=== PATIENT | female | born 1940 | race Caucasian/White ===

== ENCOUNTER 2022-02-18 17:23 | Inpatient (IN) | payer MEDICARE, BC ==
[~2022-02-18] VITALS: Ht 165.1 cm; Wt 72.6 kg
--- NOTE | 2022-02-18 17:30 | NUR ---
Recieved pt 81 yrs female by elina from home c/o syncopy and cold sweat pt awake and alert respiration spont and easy
[2022-02-18] MEDS ORDERED: LEVO112T2 PO (17:37)
[2022-02-18] MEDS ORDERED: ATOR20TA PO (17:37)
[2022-02-18] MEDS ORDERED: GABA600T12 PO (17:37)
[2022-02-18] MEDS ORDERED: SERT100T12 PO (17:37)
[2022-02-18] MEDS ORDERED: OMEP40CA21 PO (17:37)
[2022-02-18] MEDS ORDERED: NITR50CA PO (17:37)
--- NOTE | 2022-02-18 17:50 | NUR ---
ABENA MCNAMARA [phone] DAUGHTER STEWARD/STEWARDESS RAILROAD DINING CAR IS [employer]
[2022-02-18 18:18] LABS: BASOPHILS # (AUTO) 0.1 K/uL (0.0-0.2); LYMPHOCYTES # (AUTO) 4.2 K/uL (0.8-4.8)
--- NOTE | 2022-02-18 18:25 | NUR ---
URINE SAMPLE AND COVID SWAB SENT TO LAB
[2022-02-18 18:26] LABS: BASOPHILS % (AUTO) 0.6 % (0.0-2.0); EOSINOPHILS % (AUTO) 0.8 % (0.0-6.0); HEMATOCRIT 42 % (33-45); LYMPHOCYTES % (AUTO) 24.7 % (20.0-44.0); MEAN CORPUSCULAR HGB CONC 31 g/dl (31.0-36.0); MEAN CORPUSCULAR VOLUME 84 fL (82-100); MONOCYTES # (AUTO) 1.1 K/uL (0.1-1.30); MONOCYTES % (AUTO) 6.5 % (2.0-12.0); NEUTROPHILS # (AUTO) 11.5 K/uL (1.8-8.9); NEUTROPHILS % (AUTO) 67.4 % (43.0-81.0); PLATELET COUNT (AUTO) 318 K/uL (150-450); RED BLOOD CELL COUNT(AUTO) 4.96 MIL/uL (4.0-5.2); WHITE BLOOD COUNT (AUTO) 17.1 K/uL (4.3-11.0)
--- NOTE | 2022-02-18 18:28 | NUR ---
COVED SWAB DONE ANd sent to lab [facility] PT HAD SUPRAPUBIC CATHETER
--- NOTE | 2022-02-18 18:33 | NUR ---
urine clear yellow color
[2022-02-18 18:34] LABS: BILIRUBIN,URINE NEGATIVE (NEGATIVE); COLOR,URINE YELLOW (YELLOW); LEUKOCYTE ESTERASE ,URINE TRACE (NEGATIVE); NITRITE, URINE NEGATIVE (NEGATIVE); PROTEIN,URINE 100 mg/dl (NEGATIVE); UGLUCOSE NEGATIVE (NEGATIVE); UROBILINOGEN,URINE 0.2 EU/dL (0.2)
[2022-02-18 18:44] LABS: LIPASE 471 U/L (73-393)
[2022-02-18 18:44] LABS: BACTERIA,URINE 1+ /HPF (None Seen); RBC,URINE 51-80 /HPF (0-2); SQUAMOUS EPITHELIAL CELL,UR 0-2 /HPF (None Seen)
[2022-02-18 18:45] LABS: ALANINE AMINOTRANSFERASE 28 U/L (12-78); ALBUMIN 3.1 g/dL (3.4-5.0); ALKALINE PHOSPHATASE 126 U/L (46-116); ASPARTATE AMINOTRANSFERASE 33 U/L (15-37); BILIRUBIN,TOTAL 0.2 mg/dL (0.2-1.0); CALCIUM, SERUM 8.6 mg/dL (8.5-10.1); CARBON DIOXIDE 22 mmol/L (21-32); CHLORIDE 105 mmol/L (98-107); CREATININE 1.9 mg/dL (0.6-1.3); GLUCOSE 147 mg/dL (74-106); POTASSIUM 4.8 mmol/L (3.5-5.1); SODIUM SERUM 138 mmol/L (136-145); TOTAL PROTEIN, SERUM 6.7 g/dL (6.4-8.2); UREA NITROGEN, BLOOD 21 mg/dL (7-18)
[2022-02-18] MEDS ORDERED: IV NS 0.9% 250 ML IV ONE (19:12)
[2022-02-18] MEDS ORDERED: IOHEXOL-300 100 ML VIAL IV ONE (19:12)
[2022-02-18] MEDS ORDERED: PIPERACILLIN /TAZOBACTAM 3.375 G in IV D5W 50 ML IV ONE (19:30)
--- NOTE | 2022-02-18 19:36 | NUR ---
RECEIVED REPORT FROM [employer] FOR CASTILLO
--- NOTE | 2022-02-18 19:49 | NUR ---
HOMER COPE, UROLOGIST: [phone]
--- NOTE | 2022-02-18 19:53 | NUR ---
hand off to april rn
--- NOTE | 2022-02-18 20:01 | NUR ---
PT IS RESTING COMFORTABLY IN BED, PT VERBALIZES HAVING A HEADACHE 7/10 ON P/S. MD MADE AWARE. WILL CONTINUE TO MONITOR.
[2022-02-18 20:43] LABS: BAND % (MANUAL) 2 % (0.0-5.0); LYMPHOCYTES % (MANUAL) 30 % (16-48); MONOCYTES % (MANUAL) 4 % (0-11.0); NEUTROPHILS % (MANUAL) 64 (42-76)
[2022-02-18] MEDS ORDERED: ACETAMINOPHEN 325 MG TABLET PO ONE (21:30)
--- NOTE | 2022-02-18 21:34 | NUR ---
COVID SWAB DONE AND SENT TO LAB
[2022-02-18] MEDS ORDERED: MAGNESIUM HYDROXIDE 30 ML UDC PO PRN (22:00)
[2022-02-18] MEDS ORDERED: MAG HYDROX/AL HYDROX/SIMETH 30 ML UDC PO PRN (22:00)
[2022-02-18] MEDS ORDERED: Z GUARD REMEDY 4 OZ OINT TP PRN (22:00)
[2022-02-18] MEDS ORDERED: ALPRAZOLAM 0.5 MG TABLET PO PRN (22:00)
[2022-02-18] MEDS ORDERED: DEXTROSE 50%-WATER 50 ML DISP.SYRIN IV PRN (22:00)
--- NOTE | 2022-02-18 22:09 | NUR ---
PT HAD BOWEL MOVEMENT , DIARRHEA NOTED. PERINEAL CARE PROVIDED.
--- NOTE | 2022-02-18 22:34 | NUR ---
PT PROVIDED WITH FOOD AND WATER. WILL CONTINUE TO MONITOR.
--- NOTE | 2022-02-18 23:12 | NUR ---
ROOM CHANGED TO [facility]
--- NOTE | 2022-02-18 23:16 | NUR ---
CALLED 3W FOR REPORT, UNABLE TO SPEAK TO KAROL MARTINEZ. SHE WILL RETURN MY CALL.
--- NOTE | 2022-02-18 23:39 | NUR ---
REPORT GIVEN TO JUAN ROBERSON FOR CASTILLO
[2022-02-19] VITALS: BP_SYST 117; BP_SYST 118; BP_DIAS 74; BP_DIAS 82
--- NOTE | 2022-02-19 | NUR ---
TRANSFERRING PT TO 327 VIA ACLS.
[2022-02-19] MEDS: IV NS 0.9% 1,000 ML IV PRN ×2 (00:31→17:46)
[2022-02-19] MEDS: BLOOD SUGAR DIAGNOSTIC 1 EACH STRIP IN SCH ×5 (00:43→22:24)
--- NOTE | 2022-02-19 00:59 | NUR ---
MS/TELE/RN RECEIVED PATIENT FROM [facility] VIA [facility] AT ABOUT 00:05 ACCOMPANIED BY THE CAREGIVER. MADE PATIENT COMFORTABLE IN BED, APPLIED THE HEART MONITOR. PATIENT WAS AWAKE, ALERT AND ORIENTED X 4, COMFORTABLE, NO C/O PAIN, NO SIGNS OF DISTRESS NOTED, ADMISSION DONE PER POLICY, SKIN CHECK DONE, PLAN OF CARE DISCUSSED WITH THE PATIENT AND VERBALISED UNDERSTANDING AND AGREEMENT TO THE PLAN OF CARE, FALL PRECAUTIONS PER PROTOCOL IMPLEMENTED, TAUGHT THE USE OF CALL LIGHT AND VERBALISED UNDERSTANDING, PLACED CALL LIGHT AT BEDSIDE WITHIN REACH, MD ORDERS CARRIED OUT, WILL MONITOR.
--- NOTE | 2022-02-19 02:59 | NUR ---
MS/TELE/RN PATIENT WAS TRANSFERRED TO ROOM 323-1 PER PATIENT'S REQUEST.
[2022-02-19 04:00] VITALS: BP 110/64
[2022-02-19] MEDS ORDERED: PIPERACILLIN /TAZOBACTAM 2.25 G VIAL IV ONE (04:39)
[2022-02-19] MEDS ORDERED: PIPERACILLIN /TAZOBACTAM 2.25 G in IV D5W 50 ML IV SCH (05:00)
[2022-02-19] MEDS: LEVOTHYROXINE SODIUM 112 MCG TABLET PO SCH (06:32)
--- NOTE | 2022-02-19 06:37 | NUR ---
MS/TELE/RN PATIENT IS AWAKE, NO C/O PAIN, BREATHING EVEN AND UNLABORED, NO SIGNS OF DISTRESS NOTED, CALL LIGHT IN REACH, ALL NEEDS ATTENDED AT THIS TIME, WILL CONTINUE TO MONITOR.
[2022-02-19 07:21] LABS: CARBON DIOXIDE 24 mmol/L (21-32); CHLORIDE 104 mmol/L (98-107); CREATININE 1.8 mg/dL (0.6-1.3); GLUCOSE 150 mg/dL (74-106); LIPASE 139 U/L (73-393); SODIUM SERUM 138 mmol/L (136-145); UREA NITROGEN, BLOOD 25 mg/dL (7-18)
[2022-02-19 07:38] LABS: THYROID STIMULATING HORMONE 1.507 uIU/mL (0.358-3.74)
[2022-02-19 07:41] LABS: BASOPHILS % (AUTO) 0.1 % (0.0-2.0); EOSINOPHILS % (AUTO) 0.6 % (0.0-6.0); HEMATOCRIT 32 % (33-45); HEMOGLOBIN 10.4 g/dL (11.5-14.8); LYMPHOCYTES # (AUTO) 3.2 K/uL (0.8-4.8); MEAN CORPUSCULAR HGB CONC 32 g/dl (31.0-36.0); MEAN CORPUSCULAR VOLUME 83 fL (82-100); MONOCYTES # (AUTO) 1.2 K/uL (0.1-1.30); MONOCYTES % (AUTO) 6.2 % (2.0-12.0); NEUTROPHILS # (AUTO) 15.2 K/uL (1.8-8.9); NEUTROPHILS % (AUTO) 77.1 % (43.0-81.0); PLATELET COUNT (AUTO) 243 K/uL (150-450); RED BLOOD CELL COUNT(AUTO) 3.89 MIL/uL (4.0-5.2); WHITE BLOOD COUNT (AUTO) 19.7 K/uL (4.3-11.0)
[2022-02-19 07:43] LABS: MAGNESIUM 1.6 mg/dL (1.8-2.4); PHOSPHORUS 5.5 mg/dL (2.5-4.9)
[2022-02-19 07:49] LABS: CALCIUM, SERUM 7.8 mg/dL (8.5-10.1)
[2022-02-19 08:00] VITALS: BP 125/78
--- NOTE | 2022-02-19 08:08 | NUR ---
RN OPENING NOTE PATIENT RECEIVED IN BED, AO X 4, PRIVATE CAREGIVER AT BED SIDE. ABLE TO RESPONDS ALL STIMULI. IN NO ACUTE DISTRESS NOTED. RESPIRATORY EVEN AND UNLABORED ON RA. SKIN IS WARM TO TOUCH, KEEP CLEAN/DRY. KEPT ELEVATED HOB FOR ENSURE AIRWAY AND ASPIRATION PRECAUTION, ALSO LOWEST POSITION OF THE BED, S/R UP X 3, BED ALARM IS ON AT ALL THE TIMES. ALL SAFETY PRECAUTION APPLIED. CALL LIGHT WITHIN REACH, WILL CONTINUE TO MONITOR.
[2022-02-19] MEDS: SERTRALINE HCL 50 MG TABLET PO SCH ×2 (08:28→20:45)
[2022-02-19] MEDS: GABAPENTIN 300 MG CAPSULE PO SCH ×3 (08:29→17:16)
[2022-02-19] MEDS: PANTOPRAZOLE 40 MG VIAL IV SCH (08:29)
[2022-02-19] MEDS ORDERED: Magnesium 1GM/D5W 100ML PREMIX 100 ML IV SCH (09:30)
[2022-02-19] MEDS: PIPERACILLIN /TAZOBACTAM 2.25 G in IV D5W 50 ML IV SCH ×2 (12:08→17:16)
[2022-02-19] MEDS: VANCOMYCIN HCL 125 MG/2.5 ML ORAL.SUSP PO SCH ×2 (14:12→17:51)
[2022-02-19] MEDS: METRONIDAZOLE 500MG/ NS 100ML 500 MG in PREMIX 1 EA IV SCH ×2 (14:13→20:45)
[2022-02-19 16:00] VITALS: BP 134/86
[2022-02-19] MEDS: HYDROCODONE/APAP 5/325MG TABLET PO PRN (17:17)
--- NOTE | 2022-02-19 18:30 | NUR ---
RN CLOSE NOTE PATIENT IN BED, IN NO ACUTE DISTRESS OBSERVED. RESPIRATION EVEN AND UNLABORED ON RA. SKIN IS WARM TO TOUCH KEEP CLEAN//DRY, INTACT IV SITE. PATIENT HAS BEEN LBM BEFORE ADMITTED AND HAD LBM X 3 DURING THE SHIFT, MD AWARENESS AND COLLECTED SAMPLE TO LAB. KEPT ELEVATED HOB FOR ENSURE AIRWAY AND ASPIRATION PRECAUTION. ALSO LOWEST POSITION OF THE BED FOR SAFETY. CALL LIGHT WITHIN REACH, WILL ENDORSE TO SAMPLE TESTER.
--- NOTE | 2022-02-19 19:25 | NUR ---
PROP AND EFFECTS DESIGNER OPENING NOTES RECEIVED PATIENT IN BED; AWAKE, ALERT AND ORIENTED X4. BREATHING IS EVEN AND NONLABORED. NO SOB NOTED. IN NO ACUTE DISTRESS. ON ROOM AIR, TOLERATING WELL. WITH IV ACCESS ON LEFT FOREARM G#18 AND ON RIGHT FOREARM G#18 INFUSING WITH NS 1L REGULATED AT 75ML/HR; PATENT, INTACT AND FLUSHES WELL. ABLE TO MAKE NEEDS KNOWN. SAFETY MEASURES IMPLEMENTED: CALL BUTTON AND TABLE WITHIN EASY REACH, SIDE RAILS UP X2, BED IN LOWEST LOCKED POSITION. WILL CONTINUE PLAN OF CARE
[2022-02-19 20:15] VITALS: BP 140/88
[2022-02-19] MEDS: MORPHINE SULFATE INJ 2 MG/ML DISP.SYRIN IV PRN (20:40)
[2022-02-19] MEDS: ATORVASTATIN 10 MG TABLET PO SCH (22:14)
[2022-02-19] MEDS: INSULIN REGULAR, HUMAN 100 UNIT/ML 3 ML VIAL SQ PRN (23:10)
[2022-02-20] MEDS: PIPERACILLIN /TAZOBACTAM 2.25 G in IV D5W 50 ML IV SCH ×5 (00:23→23:08)
[2022-02-20] MEDS: VANCOMYCIN HCL 125 MG/2.5 ML ORAL.SUSP PO SCH ×5 (00:24→23:08)
[2022-02-20 04:21] VITALS: BP 178/83
[2022-02-20] MEDS: METRONIDAZOLE 500MG/ NS 100ML 500 MG in PREMIX 1 EA IV SCH ×3 (05:01→20:41)
[2022-02-20 06:17] LABS: BASOPHILS % (AUTO) 0.1 % (0.0-2.0); EOSINOPHILS % (AUTO) 1.3 % (0.0-6.0); HEMATOCRIT 31 % (33-45); HEMOGLOBIN 10.1 g/dL (11.5-14.8); LYMPHOCYTES # (AUTO) 2.4 K/uL (0.8-4.8); LYMPHOCYTES % (AUTO) 26.3 % (20.0-44.0); MEAN CORPUSCULAR HGB CONC 32 g/dl (31.0-36.0); MEAN CORPUSCULAR VOLUME 83 fL (82-100); MONOCYTES # (AUTO) 0.8 K/uL (0.1-1.30); MONOCYTES % (AUTO) 8.2 % (2.0-12.0); NEUTROPHILS # (AUTO) 5.9 K/uL (1.8-8.9); NEUTROPHILS % (AUTO) 64.1 % (43.0-81.0); PLATELET COUNT (AUTO) 224 K/uL (150-450); RED BLOOD CELL COUNT(AUTO) 3.78 MIL/uL (4.0-5.2); WHITE BLOOD COUNT (AUTO) 9.3 K/uL (4.3-11.0)
[2022-02-20 06:31] LABS: CALCIUM, SERUM 8.3 mg/dL (8.5-10.1); CREATININE 1.1 mg/dL (0.6-1.3); MAGNESIUM 1.6 mg/dL (1.8-2.4); PHOSPHORUS 4.1 mg/dL (2.5-4.9); POTASSIUM 4.1 mmol/L (3.5-5.1)
[2022-02-20 06:38] LABS: OCCULT BLOOD STOOL POSITIVE (NEGATIVE)
[2022-02-20] MEDS: IV NS 0.9% 1,000 ML IV PRN (06:46)
--- NOTE | 2022-02-20 07:25 | NUR ---
RAILROAD SIGNAL OPERATOR CLOSING NOTES PATIENT IN BED; AWAKE, ALERT AND ORIENTED X4. BREATHING IS EVEN AND NONLABORED. IN NO ACUTE DISTRESS. ON ROOM AIR, TOLERATING WELL. NEEDS ATTENDED. SAFETY MEASURES IN PLACE. ENDORSED TO MORNING SHIFT FOR CONTINUITY OF CARE.
--- NOTE | 2022-02-20 07:52 | NUR ---
RN OPENING NOTE PATIENT IN BED RESTING, SLEEPING, AWAKENS TO VERBAL STIMULI. A/O X 4. NO S/S OF PAIN NOTED AT THIS TIME. ON ROOM AIR, NO DISTRESS OR SHORTNESS OF BREATH NOTED. IV ACCESS RFA #18G INTACT, PATENT AND FLUSHING WELL. PATIENT HAVE A SUPRAPUBIC CATHETER, IN PLACE AND DRAINING WELL. FALL AND SAFETY MEASURES IN PLACE, BED ALARM ON, BED IN LOW AND LOCK POSITION, CALL LIGHT AND TABLE WITHIN EASY REACH, SIDE RAILS UP X2. WILL CONTINUE TO MONITOR.
[2022-02-20 08:00] VITALS: BP 175/87
[2022-02-20] MEDS: PANTOPRAZOLE 40 MG VIAL IV SCH (09:47)
[2022-02-20] MEDS: GABAPENTIN 300 MG CAPSULE PO SCH ×3 (09:47→16:37)
[2022-02-20] MEDS: LEVOTHYROXINE SODIUM 112 MCG TABLET PO SCH (09:47)
[2022-02-20] MEDS: SERTRALINE HCL 50 MG TABLET PO SCH (09:47)
[2022-02-20] MEDS: BLOOD SUGAR DIAGNOSTIC 1 EACH STRIP IN SCH ×4 (09:48→21:25)
[2022-02-20] MEDS ORDERED: MAGNESIUM OXIDE 400 MG TABLET PO ONE (10:30)
[2022-02-20] MEDS: ONDANSETRON HCL/PF 4 MG/2 ML VIAL IVP PRN (10:38)
[2022-02-20] MEDS: MORPHINE SULFATE INJ 2 MG/ML DISP.SYRIN IV PRN ×3 (10:39→20:14)
[2022-02-20] MEDS: GLUCERNA SHAKE 237 ML CAN PO SCH ×2 (13:55→17:11)
[2022-02-20] MEDS ORDERED: METOCLOPRAMIDE HCL 10 MG/2 ML VIAL IV PRN (15:00)
[2022-02-20 16:00] VITALS: BP 154/92
[2022-02-20] MEDS ORDERED: BUPR300T52 PO (16:10)
[2022-02-20] MEDS ORDERED: LISI10TA29 PO (16:11)
[2022-02-20] MEDS: LISINOPRIL (10MG) 10 MG TABLET PO SCH (16:38)
[2022-02-20] MEDS: INSULIN REGULAR, HUMAN 100 UNIT/ML 3 ML VIAL SQ PRN (17:20)
--- NOTE | 2022-02-20 18:35 | NUR ---
RN CLOSING NOTE PATIENT IN BED RESTING, SLEEPING, AWAKENS TO VERBAL STIMULI. A/O X 4. NO S/S OF PAIN NOTED AT THIS TIME. ON ROOM AIR, NO DISTRESS OR SHORTNESS OF BREATH NOTED. IV ACCESS RFA #18G INTACT, PATENT AND FLUSHING WELL. PATIENT HAVE A SUPRAPUBIC CATHETER, IN PLACE AND DRAINING WELL, OUTPUT 1650ML. ALL SCHEDULE MEDICATIONS ADMINISTERED. FALL AND SAFETY MEASURES IN PLACE, BED ALARM ON, BED IN LOW AND LOCK POSITION, CALL LIGHT AND TABLE WITHIN EASY REACH, SIDE RAILS UP X2. WILL ENDORSE TO BATCH TESTER.
--- NOTE | 2022-02-20 19:20 | NUR ---
RN NOTE PT AWAKE IN BED, A/OX3, ABLE TO MAKE NEEDS KNOWN. NO C/O PAIN AT THIS TIME. ON ROOM AIR AND MANOLO WELL. RESPIRATIONS EVEN/UNLABORED. IV SITES: R-FA #18 AND L-FA #18 BOTH INTACT/PATENT. RUNNING NS @75ML/HR ON R-FA. 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 PT WITH MARKET RESEARCHER AT BEDSIDE. PT IN NO ACUTE DISTRESS. SAFETY MEASURE IN PLACE, WILL CONT TO MONITOR.
[2022-02-20] MEDS: ATORVASTATIN 10 MG TABLET PO SCH (21:18)
[2022-02-20] MEDS ORDERED: ATORVASTATIN 10 MG TABLET PO SCH (22:00)
[2022-02-21] MEDS: IV NS 0.9% 1,000 ML IV PRN ×2 (03:15→23:47)
[2022-02-21] MEDS: METRONIDAZOLE 500MG/ NS 100ML 500 MG in PREMIX 1 EA IV SCH (04:17)
[2022-02-21] MEDS: PIPERACILLIN /TAZOBACTAM 2.25 G in IV D5W 50 ML IV SCH (05:14)
[2022-02-21] MEDS: VANCOMYCIN HCL 125 MG/2.5 ML ORAL.SUSP PO SCH ×4 (05:14→23:39)
[2022-02-21] MEDS: LEVOTHYROXINE SODIUM 112 MCG TABLET PO SCH (06:13)
[2022-02-21 06:16] LABS: BASOPHILS % (AUTO) 0.2 % (0.0-2.0); EOSINOPHILS % (AUTO) 1.1 % (0.0-6.0); HEMATOCRIT 31 % (33-45); HEMOGLOBIN 9.9 g/dL (11.5-14.8); LYMPHOCYTES # (AUTO) 2.2 K/uL (0.8-4.8); LYMPHOCYTES % (AUTO) 20.9 % (20.0-44.0); MEAN CORPUSCULAR HGB CONC 32 g/dl (31.0-36.0); MEAN CORPUSCULAR VOLUME 83 fL (82-100); MONOCYTES # (AUTO) 1.1 K/uL (0.1-1.30); MONOCYTES % (AUTO) 10.5 % (2.0-12.0); NEUTROPHILS # (AUTO) 7.1 K/uL (1.8-8.9); NEUTROPHILS % (AUTO) 67.3 % (43.0-81.0); PLATELET COUNT (AUTO) 212 K/uL (150-450); RED BLOOD CELL COUNT(AUTO) 3.69 MIL/uL (4.0-5.2); WHITE BLOOD COUNT (AUTO) 10.6 K/uL (4.3-11.0)
[2022-02-21] MEDS: BLOOD SUGAR DIAGNOSTIC 1 EACH STRIP IN SCH ×4 (06:19→21:10)
[2022-02-21 06:48] LABS: CALCIUM, SERUM 8.5 mg/dL (8.5-10.1); MAGNESIUM 1.5 mg/dL (1.8-2.4); PHOSPHORUS 3.9 mg/dL (2.5-4.9); POTASSIUM 3.8 mmol/L (3.5-5.1)
[2022-02-21] MEDS: PANTOPRAZOLE 40 MG TABLET.DR PO SCH (07:02)
--- NOTE | 2022-02-21 07:17 | NUR ---
RN NOTE PT ASLEEP. EASILY AROUSABLE TO STIMULI, GOES RIGHT BACK TO SLEEP. PER CAREGIVER PT EATS LATE IN AM. RESPIRATIONS EVEN/UNLABORED. IV SITES: R-FA #18 AND L-FA #18 BOTH INTACT/PATENT. RUNNING NS @75ML/HR ON R-FA. ON TELE MONITOR, READING SR WITH BORDERLINE 1ST DEGREE AV BLOCK. PT WITH GROUP SUPERVISOR YARD AT BEDSIDE. NO ACUTE DISTRESS DURING THE SHIFT. SAFETY MEASURE MAINTAINED. ENDORSED TO NEXT SHIFT NURSE.
--- NOTE | 2022-02-21 07:49 | NUR ---
RN OPENING NOTE PATIENT IN BED RESTING, SLEEPING, AWAKENS TO VERBAL STIMULI. A/O X 4. NO S/S OF PAIN NOTED AT THIS TIME. ON ROOM AIR, NO DISTRESS OR SHORTNESS OF BREATH NOTED. IV ACCESS RFA #18G, LFA #18G INTACT, PATENT AND FLUSHING WELL. PATIENT HAVE A SUPRAPUBIC CATHETER, IN PLACE AND DRAINING WELL. PATIENT ON EXTERNAL SPOT FACER WITH CURRENT READING OF SR AND HR OF 76, NO CARDIAC DISTRESS NOTED. FALL AND SAFETY MEASURES IN PLACE, BED ALARM ON, BED IN LOW AND LOCK POSITION, CALL LIGHT AND TABLE WITHIN EASY REACH, SIDE RAILS UP X2. WILL CONTINUE TO MONITOR.
[2022-02-21] MEDS: GABAPENTIN 300 MG CAPSULE PO SCH ×3 (08:41→17:12)
[2022-02-21] MEDS: LISINOPRIL (10MG) 10 MG TABLET PO SCH (08:42)
[2022-02-21] MEDS: GLUCERNA SHAKE 237 ML CAN PO SCH ×3 (08:49→17:13)
[2022-02-21] MEDS: SERTRALINE HCL 50 MG TABLET PO SCH (09:00)
[2022-02-21] MEDS: BUPROPION XL 150 MG TAB.ER.24 PO SCH (09:00)
[2022-02-21] MEDS ORDERED: buPROPion 100 MG TABLET PO SCH (09:00)
[2022-02-21] MEDS: ONDANSETRON HCL/PF 4 MG/2 ML VIAL IVP PRN (09:05)
[2022-02-21] MEDS: Magnesium 1GM/D5W 100ML PREMIX 100 ML IV SCH ×2 (09:56→11:08)
[2022-02-21] MEDS: METRONIDAZOLE 500 MG TABLET PO SCH ×2 (12:24→20:12)
[2022-02-21] MEDS: HYDROCODONE/APAP 5/325MG TABLET PO PRN ×2 (14:37→20:13)
[2022-02-21] MEDS: INSULIN REGULAR, HUMAN 100 UNIT/ML 3 ML VIAL SQ PRN (17:12)
--- NOTE | 2022-02-21 19:29 | NUR ---
RN CLOSING NOTE PATIENT IN BED RESTING, SLEEPING, AWAKENS TO VERBAL STIMULI. A/O X 4. NO S/S OF PAIN NOTED AT THIS TIME. ON ROOM AIR, NO DISTRESS OR SHORTNESS OF BREATH NOTED. IV ACCESS RFA #18G INTACT, PATENT AND FLUSHING WELL. PATIENT HAVE A SUPRAPUBIC CATHETER, IN PLACE AND DRAINING WELL, OUTPUT 2100ML. ALL SCHEDULE MEDICATIONS ADMINISTERED. PATIENT ON EXTERNAL WARD ATTENDANT WITH CURRENT READING OF RS AND HR OF 78, NO CARDIAC DISTRESS NOTED. FALL AND SAFETY MEASURES IN PLACE, BED ALARM ON, BED IN LOW AND LOCK POSITION, CALL LIGHT AND TABLE WITHIN EASY REACH, SIDE RAILS UP X2. WILL ENDORSE TO FURNITURE UPHOLSTERER APPRENTICE.
--- NOTE | 2022-02-21 19:30 | NUR ---
RN NOTE PT AWAKE IN BED, A/OX3, ABLE TO MAKE NEEDS KNOWN. NO C/O PAIN AT THIS TIME. RESPIRATIONS EVEN/UNLABORED. IV SITES: R-FA #18 AND L-FA #18 BOTH INTACT/PATENT. RUNNING NS @75ML/HR ON R-FA. ON TELE MONITOR, READING SR, HR 68, with BBB. PT WITH ARMHOLE RAISER LOCKSTITCH AT BEDSIDE. PT IN NO ACUTE DISTRESS. SAFETY MEASURE IN PLACE, WILL CONT TO MONITOR.
[2022-02-21] MEDS: ATORVASTATIN 10 MG TABLET PO SCH (21:10)
--- NOTE | 2022-02-21 23:00 | NUR ---
RN NOTE SEEN BY AND NOTED ELIZABETH ORDER
[2022-02-21] MEDS ORDERED: CEFTRIAXONE 1 G VIAL ONE (23:31)
[2022-02-21] MEDS: CEFTRIAXONE 1 G in IV D5W 50 ML IV SCH (23:32)
[2022-02-22 00:55] VITALS: BP 135/72
[2022-02-22 04:39] VITALS: BP 121/76
[2022-02-22] MEDS: METRONIDAZOLE 500 MG TABLET PO SCH ×3 (05:44→21:23)
[2022-02-22] MEDS: VANCOMYCIN HCL 125 MG/2.5 ML ORAL.SUSP PO SCH ×3 (05:51→18:07)
[2022-02-22] MEDS: LEVOTHYROXINE SODIUM 112 MCG TABLET PO SCH (05:53)
[2022-02-22] MEDS: BLOOD SUGAR DIAGNOSTIC 1 EACH STRIP IN SCH ×4 (06:04→21:25)
[2022-02-22] MEDS: INSULIN REGULAR, HUMAN 100 UNIT/ML 3 ML VIAL SQ PRN (06:07)
[2022-02-22 06:28] LABS: BASOPHILS % (AUTO) 0.3 % (0.0-2.0); EOSINOPHILS % (AUTO) 1.8 % (0.0-6.0); HEMATOCRIT 33 % (33-45); HEMOGLOBIN 10.8 g/dL (11.5-14.8); LYMPHOCYTES % (AUTO) 22.3 % (20.0-44.0); MEAN CORPUSCULAR HGB CONC 32 g/dl (31.0-36.0); MEAN CORPUSCULAR VOLUME 83 fL (82-100); MONOCYTES # (AUTO) 0.9 K/uL (0.1-1.30); MONOCYTES % (AUTO) 10.7 % (2.0-12.0); NEUTROPHILS # (AUTO) 5.7 K/uL (1.8-8.9); NEUTROPHILS % (AUTO) 64.9 % (43.0-81.0); PLATELET COUNT (AUTO) 211 K/uL (150-450); RED BLOOD CELL COUNT(AUTO) 4.01 MIL/uL (4.0-5.2); WHITE BLOOD COUNT (AUTO) 8.8 K/uL (4.3-11.0)
[2022-02-22 06:53] LABS: CREATININE 0.9 mg/dL (0.6-1.3); MAGNESIUM 1.5 mg/dL (1.8-2.4); PHOSPHORUS 4.1 mg/dL (2.5-4.9); POTASSIUM 3.8 mmol/L (3.5-5.1)
--- NOTE | 2022-02-22 07:28 | NUR ---
ORACLE HRMS DEVELOPER OPENING NOTES RECEIVED PATIENT AWAKE IN BED;PATIENT IS ALERT AND ORIENTED X4. BREATHING IS EVEN AND NONLABORED. NO SOB NOTED. NO ACUTE DISTRESS NOTED. ON ROOM AIR, TOLERATING WELL. ON TELE MONITOR . IV ACCESS ON LEFT FOREARM G#18 AND ON RIGHT FOREARM G#18 INTACT.ON IV HYDRATION OF NS AT 75ML/HR ON THE RIGHT FOREARM. ABLE TO MAKE NEEDS KNOWN. SAFETY MEASURES IN PLACE. CALL LIGHT AND TABLE WITHIN EASY REACH, SIDE RAILS UP X2, BED IN LOWEST LOCKED POSITION. WILL CONTINUE TO MONITOR.
[2022-02-22] MEDS: PANTOPRAZOLE 40 MG TABLET.DR PO SCH (07:46)
[2022-02-22 08:00] VITALS: BP 160/92
[2022-02-22] MEDS: GLUCERNA SHAKE 237 ML CAN PO SCH ×3 (08:02→17:24)
[2022-02-22] MEDS: BUPROPION XL 150 MG TAB.ER.24 PO SCH (08:41)
[2022-02-22] MEDS: GABAPENTIN 300 MG CAPSULE PO SCH ×3 (08:41→16:20)
[2022-02-22] MEDS: SERTRALINE HCL 50 MG TABLET PO SCH (08:44)
[2022-02-22] MEDS: LISINOPRIL (10MG) 10 MG TABLET PO SCH (08:45)
[2022-02-22] MEDS: HYDROCODONE/APAP 5/325MG TABLET PO PRN ×2 (08:45→21:23)
[2022-02-22] MEDS: ONDANSETRON HCL/PF 4 MG/2 ML VIAL IVP PRN (08:49)
[2022-02-22] MEDS ORDERED: MAGNESIUM OXIDE 400 MG TABLET PO ONE (09:30)
[2022-02-22] MEDS ORDERED: BACITRACIN ZINC OINT PACKET 1 EA PACKET TP SCH (11:00)
[2022-02-22 12:00] VITALS: BP 141/79
[2022-02-22] MEDS: ACETAMINOPHEN 325 MG TABLET PO PRN (14:50)
[2022-02-22 16:00] VITALS: BP 140/78
[2022-02-22] MEDS: BACITRACIN ZINC OINT (15 GM) 15 GM TUBE TP SCH (16:21)
--- NOTE | 2022-02-22 19:30 | NUR ---
CAREER CENTER ADVISOR CLOSING NOTES PATIENT AWAKE IN BED;PATIENT IS ALERT AND ORIENTED X4. BREATHING IS EVEN AND NONLABORED. NO SOB NOTED. NO ACUTE DISTRESS NOTED. ON ROOM AIR, TOLERATING WELL. ON TELE MONITOR . IV ACCESS ON LEFT FOREARM G#18 AND ON RIGHT FOREARM G#18 INTACT.ON IV HYDRATION OF NS AT 75ML/HR ON THE RIGHT FOREARM. ABLE TO MAKE NEEDS KNOWN. ALL DUE MEDS GIVEN ORDERED. SAFETY MEASURES IN PLACE. CALL LIGHT AND TABLE WITHIN EASY REACH, SIDE RAILS UP X2, BED IN LOWEST LOCKED POSITION. WILL ENDORSE FOR CASTILLO..
--- NOTE | 2022-02-22 19:40 | NUR ---
TELERN FULLY AWAKE, UPSET STATED HAS PAIN AROUND SP CATH SITE, SITE MILD INFLAMATION AND REDNESS AROUND AREA. NO DRAINAGE SEEN. PATIENT ON ANTIBIOTICS. PRESENT IVF INFUSING WELL VIA LEFT ARM PLAN OF CARE AND MEDICATION REGIMEN DISCUSSED WITH PATIENT NEEDED FURTHER DISCUSSION. FORGETFUL.HAS OWN CAREGIVER TAKING CARE OF HER BASIC NEEDS. WILL NEED TO CALL MD REGARDING PATENTS COMPLAINTS. SR OF THE MONITOR, CONTINUED MONITORING.
[2022-02-22 20:00] VITALS: BP 133/86
[2022-02-22] MEDS: GUAIFENESIN/CODEINE 10 ML UDC PO PRN (20:01)
[2022-02-22] MEDS: ATORVASTATIN 10 MG TABLET PO SCH (21:23)
--- NOTE | 2022-02-22 21:25 | NUR ---
TELERN ORDERS RECEIVED FROM . NOVA 1 TAB PO ADMINISTERED, REPOSITIONED FOR COMFORT. CONTINUED MONITORING.
[2022-02-23] MEDS: CEFTRIAXONE 1 G in IV D5W 50 ML IV SCH (00:20)
[2022-02-23] MEDS: VANCOMYCIN HCL 125 MG/2.5 ML ORAL.SUSP PO SCH ×4 (00:21→18:14)
[2022-02-23 01:24] VITALS: BP 184/92
[2022-02-23] MEDS: HYDROCODONE/APAP 5/325MG TABLET PO PRN ×2 (01:42→13:09)
[2022-02-23 06:00] VITALS: BP 156/83
[2022-02-23] MEDS: METRONIDAZOLE 500 MG TABLET PO SCH ×3 (06:06→21:01)
[2022-02-23 06:26] LABS: BASOPHILS % (AUTO) 0.4 % (0.0-2.0); EOSINOPHILS % (AUTO) 2.2 % (0.0-6.0); HEMATOCRIT 33 % (33-45); HEMOGLOBIN 10.6 g/dL (11.5-14.8); LYMPHOCYTES # (AUTO) 2.2 K/uL (0.8-4.8); LYMPHOCYTES % (AUTO) 28.5 % (20.0-44.0); MEAN CORPUSCULAR HGB CONC 32 g/dl (31.0-36.0); MEAN CORPUSCULAR VOLUME 83 fL (82-100); MONOCYTES # (AUTO) 0.8 K/uL (0.1-1.30); MONOCYTES % (AUTO) 10.3 % (2.0-12.0); NEUTROPHILS # (AUTO) 4.6 K/uL (1.8-8.9); NEUTROPHILS % (AUTO) 58.6 % (43.0-81.0); PLATELET COUNT (AUTO) 199 K/uL (150-450); RED BLOOD CELL COUNT(AUTO) 3.96 MIL/uL (4.0-5.2); WHITE BLOOD COUNT (AUTO) 7.8 K/uL (4.3-11.0)
--- NOTE | 2022-02-23 06:45 | NUR ---
TELERN SLEPT LATE LIFESTYLE CONSULTANT. DUE MEDS GIVEN, BS 127. ALL NEEDS MADE, WENT BACK TO SLEEP.
[2022-02-23 06:47] LABS: CALCIUM, SERUM 8.5 mg/dL (8.5-10.1); CARBON DIOXIDE 29 mmol/L (21-32); CHLORIDE 106 mmol/L (98-107); CREATININE 0.8 mg/dL (0.6-1.3); GLUCOSE 129 mg/dL (74-106); MAGNESIUM 1.5 mg/dL (1.8-2.4); PHOSPHORUS 4.3 mg/dL (2.5-4.9); POTASSIUM 3.9 mmol/L (3.5-5.1); SODIUM SERUM 142 mmol/L (136-145); UREA NITROGEN, BLOOD 12 mg/dL (7-18)
--- NOTE | 2022-02-23 07:23 | NUR ---
COLOR PASTE MIXING SUPERVISOR OPENING NOTE RECEIVED PATIENT ASLEEP IN BED, EASILY AROUSE WITH CAREGIVER AT BEDSIDE. PATIENT IS ALERT AND ORIENTED X4. ABLE TO MAKE NEEDS KNOWN. ON ROOM AIR, TOLERATING WELL. BREATHING IS EVEN AND NONLABORED. NOT IN ANY SIGN OF RESPIRATORY DISTRESS. ON TELE MONITOR WITH CURRENT READING OF NORMAL SR, HR 66. IV ACCESS ON LEFT FOREARM G#18 AND ON RIGHT FOREARM G#18 INTACT. ON IV HYDRATION OF NS AT 75ML/HR ON THE RIGHT FOREARM. SAFETY MEASURES IN PLACE: CALL LIGHT AND TABLE WITHIN EASY REACH, SIDE RAILS UP X2, BED IN LOWEST LOCKED POSITION. WILL CONTINUE TO MONITOR PT AND WITH PLAN OF CARE.
[2022-02-23] MEDS: LEVOTHYROXINE SODIUM 112 MCG TABLET PO SCH (07:59)
[2022-02-23] MEDS: GLUCERNA SHAKE 237 ML CAN PO SCH ×3 (08:00→17:21)
[2022-02-23] MEDS: BLOOD SUGAR DIAGNOSTIC 1 EACH STRIP IN SCH ×4 (08:00→21:17)
[2022-02-23] MEDS: PANTOPRAZOLE 40 MG TABLET.DR PO SCH (08:00)
[2022-02-23 08:30] VITALS: BP 169/84
[2022-02-23] MEDS ORDERED: VANC125C11 PO (09:16)
[2022-02-23] MEDS: BACITRACIN ZINC OINT (15 GM) 15 GM TUBE TP SCH ×2 (09:42→17:21)
[2022-02-23] MEDS: BUPROPION XL 150 MG TAB.ER.24 PO SCH (09:42)
[2022-02-23] MEDS: SERTRALINE HCL 50 MG TABLET PO SCH (09:42)
[2022-02-23] MEDS: GABAPENTIN 300 MG CAPSULE PO SCH ×3 (09:42→17:21)
[2022-02-23] MEDS: LISINOPRIL (10MG) 10 MG TABLET PO SCH (09:43)
[2022-02-23] MEDS: Magnesium 1GM/D5W 100ML PREMIX 100 ML IV SCH ×2 (10:13→11:23)
[2022-02-23] MEDS: ONDANSETRON HCL/PF 4 MG/2 ML VIAL IVP PRN (11:02)
[2022-02-23] MEDS: ACETAMINOPHEN 325 MG TABLET PO PRN (11:02)
[2022-02-23 12:00] VITALS: BP 146/82
[2022-02-23] MEDS: INSULIN REGULAR, HUMAN 100 UNIT/ML 3 ML VIAL SQ PRN ×2 (12:34→17:22)
[2022-02-23 16:00] VITALS: BP 133/73
[2022-02-23] MEDS: GUAIFENESIN/CODEINE 10 ML UDC PO PRN (17:26)
--- NOTE | 2022-02-23 17:30 | NUR ---
RN NOTES ERROR WITH SCANNING MEDICATION. MANUALLY ENTERED, ADMINISTERED ROBITUSSIN WITH CODEINE AT 1726.
--- NOTE | 2022-02-23 18:35 | NUR ---
RN NOTES MADE DR. HAY AWARE OF PT'S VTE SCORE OF 3 WHICH PT'S IS AT RISK WITH ORDERS TO START PT ON LOVENOX 40MG SQ DAILY START AT 2100.
--- NOTE | 2022-02-23 19:30 | NUR ---
TIE INSPECTOR CLOSING NOTE PATIENT ASLEEP IN BED, EASILY AROUSE WITH CAREGIVER AT BEDSIDE. PATIENT IS ALERT AND ORIENTED X4. ABLE TO MAKE NEEDS KNOWN. ON ROOM AIR, TOLERATING WELL. BREATHING IS EVEN AND NONLABORED. NOT IN ANY SIGN OF RESPIRATORY DISTRESS. ON TELE MONITOR WITH CURRENT READING OF NORMAL SR, HR 70. IV ACCESS ON LEFT FOREARM G#18 AND ON RIGHT FOREARM G#18 INTACT. ON IV HYDRATION OF NS AT 75ML/HR ON THE RIGHT FOREARM. TURNED AND REPOSITIONED Q2HRS AND NEEDED. ALL NEEDS ATTENDED. SAFETY MEASURES IN PLACE: CALL LIGHT AND TABLE WITHIN EASY REACH, SIDE RAILS UP X2, BED IN LOWEST LOCKED POSITION. ENDORSED TO BURLAP ROLL COVERER NURSE.
--- NOTE | 2022-02-23 19:57 | NUR ---
MORTAR MAKER OPENING NOTE RECEIVED PATIENT ASLEEP IN BED, EASILY AROUSE WITH CAREGIVER AT BEDSIDE. PATIENT IS ALERT AND ORIENTED X4. ABLE TO MAKE NEEDS KNOWN. ON ROOM AIR, TOLERATING WELL. BREATHING IS EVEN AND NONLABORED. NOT IN ANY SIGN OF RESPIRATORY DISTRESS. ON TELE MONITOR WITH CURRENT READING OF NORMAL SR, HR 66. IV ACCESS ON LEFT FOREARM G#18 AND ON RIGHT FOREARM G#18 INTACT. ON IV HYDRATION OF NS AT 75ML/HR ON THE RIGHT FOREARM. SAFETY MEASURES IN PLACE: CALL LIGHT AND TABLE WITHIN EASY REACH, SIDE RAILS UP X2, BED IN LOWEST LOCKED POSITION. WILL CONTINUE TO MONITOR PT AND WITH PLAN OF CARE. Addendum: 02/23/22 at 7 by REJI MURILLO RN DELETE ENTRY WRONG ENTRY
[2022-02-23 20:00] VITALS: BP 113/76
--- NOTE | 2022-02-23 20:43 | NUR ---
RN NOTE PT C/O COUGHING AND ASKING FOR COUGH MED, EXPLAINED MED WAS GIVEN @1726 AND NOT YET DUE. PT ADAMANT TO REQUEST TO MD FOR ANOTHER COUGH MED. REPORTED TO ELZA KOCH NP WITH ORDER FOR ROBITUSSIN DM 5ML Q4HR PRN AND TO JOEY PREVIOUS ORDER
[2022-02-23] MEDS ORDERED: GUAIFENESIN/D-METHORPHAN HB 5 ML UDC PO PRN (21:00)
[2022-02-23] MEDS: ATORVASTATIN 10 MG TABLET PO SCH (21:01)
[2022-02-23] MEDS: ENOXAPARIN SODIUM 40 MG/0.4 ML DISP.SYRIN SQ SCH (21:02)
[2022-02-24] VITALS: BP 134/78
[2022-02-24] MEDS: CEFTRIAXONE 1 G in IV D5W 50 ML IV SCH (00:22)
[2022-02-24] MEDS: VANCOMYCIN HCL 125 MG/2.5 ML ORAL.SUSP PO SCH ×3 (00:22→12:04)
[2022-02-24 04:00] VITALS: BP 132/77
[2022-02-24] MEDS: METRONIDAZOLE 500 MG TABLET PO SCH ×2 (05:23→13:09)
[2022-02-24] MEDS: LEVOTHYROXINE SODIUM 112 MCG TABLET PO SCH (06:24)
[2022-02-24 06:32] LABS: BASOPHILS % (AUTO) 0.3 % (0.0-2.0); EOSINOPHILS % (AUTO) 1.3 % (0.0-6.0); HEMATOCRIT 32 % (33-45); HEMOGLOBIN 10.3 g/dL (11.5-14.8); LYMPHOCYTES # (AUTO) 2.2 K/uL (0.8-4.8); MEAN CORPUSCULAR HGB CONC 32 g/dl (31.0-36.0); MEAN CORPUSCULAR VOLUME 83 fL (82-100); MONOCYTES # (AUTO) 1.2 K/uL (0.1-1.30); MONOCYTES % (AUTO) 9.5 % (2.0-12.0); NEUTROPHILS # (AUTO) 8.6 K/uL (1.8-8.9); NEUTROPHILS % (AUTO) 70.9 % (43.0-81.0); PLATELET COUNT (AUTO) 208 K/uL (150-450); RED BLOOD CELL COUNT(AUTO) 3.89 MIL/uL (4.0-5.2); WHITE BLOOD COUNT (AUTO) 12.1 K/uL (4.3-11.0)
[2022-02-24] MEDS: BLOOD SUGAR DIAGNOSTIC 1 EACH STRIP IN SCH ×2 (06:33→12:04)
[2022-02-24] MEDS: INSULIN REGULAR, HUMAN 100 UNIT/ML 3 ML VIAL SQ PRN ×2 (06:35→12:07)
[2022-02-24 07:02] LABS: CALCIUM, SERUM 8.5 mg/dL (8.5-10.1); CARBON DIOXIDE 29 mmol/L (21-32); CHLORIDE 106 mmol/L (98-107); CREATININE 1.1 mg/dL (0.6-1.3); GLUCOSE 150 mg/dL (74-106); MAGNESIUM 1.7 mg/dL (1.8-2.4); POTASSIUM 4.2 mmol/L (3.5-5.1); SODIUM SERUM 142 mmol/L (136-145); UREA NITROGEN, BLOOD 15 mg/dL (7-18)
--- NOTE | 2022-02-24 08:02 | NUR ---
RN OPENING NOTE PATIENT RECEIVED IN BED, AO X 3-4, PRIVATE CAREGIVER AT BED SIDE. ABLE TO RESPONDS ALL STIMULI. IN NO ACUTE DISTRESS NOTED. RESPIRATORY EVEN AND UNLABORED ON RA. SKIN IS WARM TO TOUCH, KEEP CLEAN/DRY. KEPT ELEVATED HOB FOR ENSURE AIRWAY AND ASPIRATION PRECAUTION, ALSO LOWEST POSITION OF THE BED, S/R UP X 3, BED ALARM IS ON AT ALL THE TIMES. ALL SAFETY PRECAUTION APPLIED. CALL LIGHT WITHIN REACH, WILL CONTINUE TO MONITOR.
--- NOTE | 2022-02-24 09:26 | NUR ---
WOUND CARE CONSULT: RECEIVED CONSULT FOR REDNESS AROUND SUPRAPUBIC CATH SITE. SUPRAPUBIC SITE IS CLEAR WITH PINK AREA PROXIMALLY, NO DRAINAGE OR TENDERNESS NOTED. PT CAREGIVER AT BEDSIDE. DEFER TO PMD. WILL SEE PRN.
[2022-02-24] MEDS: GABAPENTIN 300 MG CAPSULE PO SCH ×2 (09:41→13:09)
[2022-02-24] MEDS: SERTRALINE HCL 50 MG TABLET PO SCH (09:42)
[2022-02-24] MEDS: BUPROPION XL 150 MG TAB.ER.24 PO SCH (09:42)
[2022-02-24 09:45] VITALS: BP 140/80
[2022-02-24] MEDS: ENOXAPARIN SODIUM 40 MG/0.4 ML DISP.SYRIN SQ SCH (09:45)
[2022-02-24] MEDS: LISINOPRIL (10MG) 10 MG TABLET PO SCH (09:45)
[2022-02-24] MEDS: BACITRACIN ZINC OINT (15 GM) 15 GM TUBE TP SCH (09:47)
[2022-02-24] MEDS: PANTOPRAZOLE 40 MG TABLET.DR PO SCH (09:49)
[2022-02-24] MEDS ORDERED: MAGNESIUM OXIDE 400 MG TABLET PO ONE (10:00)
[2022-02-24] MEDS: ACETAMINOPHEN 325 MG TABLET PO PRN (10:05)
[2022-02-24] MEDS: GLUCERNA SHAKE 237 ML CAN PO SCH ×2 (10:11→12:04)
--- NOTE | 2022-02-24 10:12 | NUR ---
GIVEN TYLENOL FOR GENERALIZED PAIN, PAIN SCALE 4 OUT 10.
--- NOTE | 2022-02-24 10:50 | NUR ---
RECHECKED MURDOCK SCALE IS 2/10.
[2022-02-24] MEDS ORDERED: CEFD300C3 PO (11:12)
[2022-02-24] MEDS ORDERED: METR500T PO (11:12)
--- NOTE | 2022-02-24 15:56 | NUR ---
PATIENT D/C TO HOME, GIVEN DISCHARGE INSTRUCTION INCLUDE NEW MEDICATIONS, ALSO CALLED [facility] FOR DELIVERY NEW MEDS TO PATIENT. Addendum: 02/24/22 at 1559 by ISHMAEL LUGO RN ERROR
--- NOTE | 2022-02-24 15:59 | NUR ---
PATIENT D/C TO HOME, GIVEN DISCHARGE INSTRUCTION INCLUDE NEW MEDICATIONS, ALSO CALLED [facility] FOR DELIVERY NEW MEDS TO PATIENT. PATIENT IN STABLE CONDITION, ALL VITAL SIGNS ARE STABLE.
--- NOTE | 2022-02-24 16:10 | NUR ---
PATIENT LEFT FACILITY ACCOMPANIED BY STAFF WITH WHEEL CHAIR TO THE PRIVATE CAR, IN STABLE CONDITION.
== END 2022-02-24 16:15 | disposition home health service (06) | DRG 314 ==
LOC: ER 17:25 → TELE 23:31
PROVIDERS: ADMIT Nurse Practitioner Acute Care; ATTEND Internal Medicine
DX: I95.9 Hypotension, unspecified (principal); N17.0 Acute kidney failure with tubular necrosis; K85.90 Acute pancreatitis without necrosis or infection, unspecified; N39.0 Urinary tract infection, site not specified; E46 Unspecified protein-calorie malnutrition; E87.2 Acidosis; L03.90 Cellulitis, unspecified; E86.0 Dehydration; E11.22 Type 2 diabetes mellitus with diabetic chronic kidney disease; K52.9 Noninfective gastroenteritis and colitis, unspecified; E78.5 Hyperlipidemia, unspecified; I12.9 Hypertensive chronic kidney disease with stage 1 through stage 4 chronic kidney disease, or unspecified chronic kidney disease; N18.9 Chronic kidney disease, unspecified; I25.10 Atherosclerotic heart disease of native coronary artery without angina pectoris; Z87.440 Personal history of urinary (tract) infections; Z87.891 Personal history of nicotine dependence; Z90.49 Acquired absence of other specified parts of digestive tract; Z90.710 Acquired absence of both cervix and uterus; E03.9 Hypothyroidism, unspecified; F32.9 Major depressive disorder, single episode, unspecified; M43.16 Spondylolisthesis, lumbar region; M48.061 Spinal stenosis, lumbar region without neurogenic claudication; N28.1 Cyst of kidney, acquired; Z96.641 Presence of right artificial hip joint; Z79.899 Other long term (current) drug therapy; B96.89 Other specified bacterial agents as the cause of diseases classified elsewhere; Z20.822 Contact with and (suspected) exposure to COVID-19; E86.1 Hypovolemia; F41.9 Anxiety disorder, unspecified; Z93.59 Other cystostomy status; E88.09 Other disorders of plasma-protein metabolism, not elsewhere classified
CPT/HCPCS: 36415; 70450-TC; 71045-TC; 76770-TC; 76856-TC; 80048-TC; 80076-TC; 81001; 82272-TC; 82962-TC; 83605-TC; 83690-TC; 83735-TC; 83880; 84100-TC; 84443-TC; 84484-TC; 85025-TC; 85730-TC; 87040-TC; 87081-TC; 87086-TC; 93307-TC; 97116-TC; 97530-TC; A4216; C9113; C9803; G0378; J0696; J1650; J1815; J2270; J2405; J2543; J2765; J3475; J7030; J7050; J7060; Q9967

== ENCOUNTER 2022-09-05 00:57 | Inpatient (IN) | payer MEDICARE, BC ==
[~2022-09-05] VITALS: Ht 165.1 cm; Wt 73.1 kg
[~2022-09-05 00:57] MED LIST: ATOR20TA PO; BUPR300T52 PO; CEFD300C3 PO; GABA600T12 PO; LEVO112T2 PO; LISI10TA29 PO; METR500T PO; NITR50CA PO; OMEP40CA21 PO; SERT100T12 PO
--- NOTE | 2022-09-05 01:10 | NUR ---
TO ER BED 1. [id number] FROM HOME C/O WEAKNESS AND NAUSEA, BP 60/40 NOTED AT SCENE. 250ML NS AND 4 ZOFRAN GIVEN BY EMS. PT IS ALERT , RR EVEN AND NON LABORED. NO EXTREMITY WEAKNESS NOTED. NO FACIAL DROOP. SCHULTZ CATH NOTED UPON ARRIVAL. CONNECTED TO POX AND HEART MONITOR. CAREGIVER AT BEDSIDE. AWAITING MD ORDERS
--- NOTE | 2022-09-05 01:14 | NUR ---
PAYROLL PROFESSIONAL AT BEDSIDE TO EKG
[2022-09-05] MEDS ORDERED: ONDANSETRON HCL/PF 4 MG/2 ML VIAL ONE (01:24)
[2022-09-05] MEDS ORDERED: ACETAMINOPHEN ES 500 MG TABLET ONE (01:24)
[2022-09-05] MEDS ORDERED: ONDANSETRON HCL/PF - ER 4 MG/2 ML VIAL IV ONE (01:30)
[2022-09-05] MEDS ORDERED: ACETAMINOPHEN ES 500 MG TABLET PO ONE (01:30)
[2022-09-05] MEDS ORDERED: IV NS 0.9% 1,000 ML BAG IV ONE (01:30)
--- NOTE | 2022-09-05 01:37 | NUR ---
LAB AT BEDSIDE
[2022-09-05 02:05] LABS: BASOPHILS # (AUTO) 0.1 K/uL (0.0-0.2); BASOPHILS % (AUTO) 0.3 % (0.0-2.0); EOSINOPHILS % (AUTO) 0.2 % (0.0-6.0); HEMATOCRIT 34 % (33-45); HEMOGLOBIN 10.1 g/dL (11.5-14.8); LYMPHOCYTES # (AUTO) 1.8 K/uL (0.8-4.8); MEAN CORPUSCULAR HGB CONC 30 g/dl (31.0-36.0); MEAN CORPUSCULAR VOLUME 75 fL (82-100); MONOCYTES # (AUTO) 1.8 K/uL (0.1-1.30); MONOCYTES % (AUTO) 9.8 % (2.0-12.0); NEUTROPHILS # (AUTO) 14.2 K/uL (1.8-8.9); NEUTROPHILS % (AUTO) 79.7 % (43.0-81.0); PLATELET COUNT (AUTO) 218 K/uL (150-450); RED BLOOD CELL COUNT(AUTO) 4.58 MIL/uL (4.0-5.2); WHITE BLOOD COUNT (AUTO) 17.9 K/uL (4.3-11.0)
[2022-09-05 02:17] LABS: CARBON DIOXIDE 26 mmol/L (21-32); CHLORIDE 109 mmol/L (98-107); CREATININE 1.6 mg/dL (0.6-1.3); GLUCOSE 268 mg/dL (74-106); POTASSIUM 4.1 mmol/L (3.5-5.1); SODIUM SERUM 137 mmol/L (136-145); UREA NITROGEN, BLOOD 31 mg/dL (7-18)
[2022-09-05 02:23] LABS: ALANINE AMINOTRANSFERASE 32 U/L (12-78); ALBUMIN 3.5 g/dL (3.4-5.0); ALKALINE PHOSPHATASE 147 U/L (46-116); ASPARTATE AMINOTRANSFERASE 21 U/L (15-37); BILIRUBIN,DIRECT 0.1 mg/dL (0.0-0.2); BILIRUBIN,TOTAL 0.3 mg/dL (0.2-1.0); TOTAL PROTEIN, SERUM 7.2 g/dL (6.4-8.2)
--- NOTE | 2022-09-05 02:44 | NUR ---
EPIC PAGED FOR PANEL
--- NOTE | 2022-09-05 02:52 | NUR ---
LACTIC ACID 2.5, AWARE
[2022-09-05 03:18] LABS: LYMPHOCYTES % (MANUAL) 18 % (16-48); MONOCYTES % (MANUAL) 5 % (0-11.0); NEUTROPHILS % (MANUAL) 77 (42-76)
[2022-09-05 04:00] VITALS: BP 141/69
[2022-09-05] MEDS ORDERED: MAG HYDROX/AL HYDROX/SIMETH 30 ML UDC PO PRN (04:00)
[2022-09-05] MEDS ORDERED: DEXTROSE 50%-WATER 50 ML DISP.SYRIN IV PRN (04:00)
[2022-09-05] MEDS ORDERED: MAGNESIUM HYDROXIDE 30 ML UDC PO PRN (04:00)
[2022-09-05] MEDS ORDERED: Z GUARD REMEDY 4 OZ OINT TP PRN (04:00)
[2022-09-05] MEDS ORDERED: ZOLPIDEM TARTRATE 5 MG TABLET PO PRN (04:00)
--- NOTE | 2022-09-05 04:07 | NUR ---
CALLED 3/W; S/W NICKDISINTEGRATOR FEEDER REPORT GIVEN. PT WILL BE GOING TO 3W [id number].
--- NOTE | 2022-09-05 04:13 | NUR ---
PT TRANSPORTED TO [facility]- VIA ACLS PROTOCOL. PT REMAINED STABLE AND IN NO ACUTE DISTRESS. RECEIVED BY JUAN ROMERO
[2022-09-05] MEDS ORDERED: ZOSYN IVPB 3.375 G in IV D5W 50ml IV ONE (05:00)
[2022-09-05] MEDS ORDERED: PIPERACILLIN /TAZOBACTAM 3.375 G VIAL IV ONE (05:29)
--- NOTE | 2022-09-05 05:30 | NUR ---
CRIME SCENE INVESTIGATOR ADMITTING NOTES: RECEIVED PATIENT FORM ER VIA GURNEY ACCOMPANIED BY CAREGIVER, ON STABLE CONDITION, TRANSFER TO ROOM 307-1 V/S SIGN ARE DONE AND WITHIN NORMAL RANGE, ON ROOM AIR SATURATING WELL, SKIN ASSESSMENT DONE SKIN IS INTACT, INVENTORIES DONE, PATIENT WAS ORIENTED TO PLACE REMIND TO USE CALL LIGHTS WHEN NEEDED ASSISTANCE, ON TELE MONITOR SR-83, NO COMPLAIN OF PAIN AND DISCOMFORT AT THIS TIME, IV LINE AT RAC #20 WITH ONGOING 0.9NSS@75ML/HR INFUSING WELL, PATIENT KEPT CLEAN AND DRY ALL NEEDS MET, WILL CONTINUE TO MONITOR.
[2022-09-05] MEDS: IV NS 0.9% 1,000 ML IV PRN (05:48)
[2022-09-05 07:00] VITALS: BP 128/70
--- NOTE | 2022-09-05 07:00 | NUR ---
RN NOTES: BLOOD SUGAR-203/4 UNITS INSULIN WAS GIVEN PER SLIDING SCALE
--- NOTE | 2022-09-05 07:02 | NUR ---
GATE MANAGER OPENING NOTES RECEIVED PATIENT AWAKE IN BED, A/Ox3-4 ABLE TO MAKE NEEDS KNOWN. CAREGIVER AT BEDSIDE. ON ROOM AIR NO S/S OF RESPIRATORY DISTRESS, ON TELE MONITORING SHOWING SR 1ST DEGREE BLOCK HR 81. NO C/O OF CARDIAC DISTRESS OR DISCOMFORT. IV ACCESS LAC #20 RUNNING NS @75 ML/HR. INTACT AND PATENT. INCONTINENT, USES DIAPER. SKIN INTACT. SAFETY MEASURES IN PLACE: BED LOCKED AND IN LOWEST POSITION, CALL LIGHT WITHIN REACH, HOB ELEVATED, SIDE RAILS UPx2. WILL CONTINUE TO MONITOR.
[2022-09-05] MEDS: INSULIN REGULAR, HUMAN 100 UNIT/ML 3 ML VIAL SQ PRN ×2 (07:13→22:45)
[2022-09-05 07:14] LABS: BASOPHILS % (AUTO) 0.1 % (0.0-2.0); EOSINOPHILS % (AUTO) 0.1 % (0.0-6.0); HEMATOCRIT 29 % (33-45); HEMOGLOBIN 8.6 g/dL (11.5-14.8); LYMPHOCYTES % (AUTO) 14.1 % (20.0-44.0); MEAN CORPUSCULAR HGB CONC 30 g/dl (31.0-36.0); MEAN CORPUSCULAR VOLUME 76 fL (82-100); MONOCYTES # (AUTO) 1.5 K/uL (0.1-1.30); MONOCYTES % (AUTO) 10.6 % (2.0-12.0); NEUTROPHILS # (AUTO) 10.5 K/uL (1.8-8.9); NEUTROPHILS % (AUTO) 75.1 % (43.0-81.0); PLATELET COUNT (AUTO) 177 K/uL (150-450); RED BLOOD CELL COUNT(AUTO) 3.83 MIL/uL (4.0-5.2)
[2022-09-05] MEDS: LEVOTHYROXINE SODIUM 112 MCG TABLET PO SCH (07:19)
[2022-09-05] MEDS ORDERED: PANTOPRAZOLE 40 MG TABLET.DR PO SCH (07:30)
--- NOTE | 2022-09-05 07:53 | NUR ---
WHEEL INSTALLER CLOSING NOTES: PATIENT WAS IN BED ACCOMPANIED BY CAREGIVER, NO COMPLAIN OF PAIN AND DISCOMFORT AT THIS TIME, NO NAUSEA AND OR VOMITING WAS OBSERVED, PATIENT KEPT CLEAN AND DRY ALL NEEDS MET ENDORSE TO INCOMING SHIFT.
[2022-09-05] MEDS: BLOOD SUGAR DIAGNOSTIC 1 EACH STRIP IN SCH ×4 (07:59→22:41)
[2022-09-05 08:44] LABS: ALANINE AMINOTRANSFERASE 24 U/L (12-78); ALBUMIN 2.8 g/dL (3.4-5.0); ALKALINE PHOSPHATASE 119 U/L (46-116); ASPARTATE AMINOTRANSFERASE 16 U/L (15-37); BILIRUBIN,DIRECT 0.1 mg/dL (0.0-0.2); BILIRUBIN,TOTAL 0.2 mg/dL (0.2-1.0); CALCIUM, SERUM 8.5 mg/dL (8.5-10.1); CARBON DIOXIDE 26 mmol/L (21-32); CREATININE 1.4 mg/dL (0.6-1.3); GLUCOSE 211 mg/dL (74-106); LIPASE 94 U/L (73-393); MAGNESIUM 1.7 mg/dL (1.8-2.4); POTASSIUM 4.6 mmol/L (3.5-5.1); SODIUM SERUM 139 mmol/L (136-145); TOTAL PROTEIN, SERUM 5.9 g/dL (6.4-8.2); UREA NITROGEN, BLOOD 29 mg/dL (7-18)
[2022-09-05 08:45] LABS: IRON, SERUM 33 ug/dl (50-175); TOTAL IRON BINDING CAPACITY 292 ug/dl (250-450)
[2022-09-05] MEDS: GABAPENTIN 300 MG CAPSULE PO SCH ×3 (09:17→16:55)
[2022-09-05] MEDS: PANTOPRAZOLE 40 MG VIAL IV SCH (09:17)
[2022-09-05] MEDS: BUPROPION XL 150 MG TAB.ER.24 PO SCH (09:17)
[2022-09-05] MEDS: SERTRALINE HCL 50 MG TABLET PO SCH ×2 (09:17→16:54)
[2022-09-05] MEDS: ONDANSETRON HCL/PF 4 MG/2 ML VIAL IVP PRN ×2 (09:18→20:11)
[2022-09-05] MEDS: HEPARIN SODIUM, PORCINE 5000 UNITS/1 ML VIAL SQ SCH ×2 (09:26→21:53)
[2022-09-05 09:51] LABS: CHOLESTEROL 125 mg/dL (<200); HDL CHOLESTEROL 49 mg/dL (40-60); LDL 66 mg/dL (0-99); TRIGLYCERIDES 62 mg/dL (30-150)
[2022-09-05] MEDS: Magnesium 1GM/D5W 100ML PREMIX 100 ML IV SCH ×2 (10:07→11:17)
[2022-09-05 12:00] VITALS: BP 124/63
[2022-09-05] MEDS: ZOSYN IVPB 2.25 G in IV D5W 50ml IV SCH ×2 (12:36→17:00)
[2022-09-05 16:00] VITALS: BP 135/69
[2022-09-05] MEDS: ACETAMINOPHEN 325 MG TABLET PO PRN (17:40)
--- NOTE | 2022-09-05 18:50 | NUR ---
RN NOTES PATIENT COMPLAINED OF PAIN OF NECK, PRN TYLENOL ADMINISTERED. WILL CONTINUE TO MONITOR.
--- NOTE | 2022-09-05 18:51 | NUR ---
STONE LATHE OPERATOR CLOSING NOTES PATIENT AWAKE IN BED, A/Ox3-4 ABLE TO MAKE NEEDS KNOWN. CAREGIVER AT BEDSIDE. STABLE ON ROOM AIR NO S/S OF RESPIRATORY DISTRESS, ON TELE MONITORING SHOWING SR 1ST DEGREE BLOCK HR 73. NO C/O OF CARDIAC DISTRESS OR DISCOMFORT. IV ACCESS LAC #20 RUNNING NS @75 ML/HR. INTACT AND PATENT. SKIN INTACT. SAFETY MEASURES MAINTAINED: BED LOCKED AND IN LOWEST POSITION, CALL LIGHT WITHIN REACH, HOB ELEVATED, SIDE RAILS UPx2. WILL ENDORSE TO NEXT SHIFT ANY CASTILLO.
--- NOTE | 2022-09-05 19:10 | NUR ---
MEAT CUTTER OPENING NOTES RECEIVED PT AWAKE IN BED, WATCHING TV AND EATING DINNER AT THIS TIME. A/Ox3-4 ABLE TO MAKE NEEDS KNOWN. CAREGIVER AT BEDSIDE. ON RA WITH NO S/S OF RESPIRATORY DISTRESS, ON TELE MONITORING SHOWING SR, HR 72. NO C/O OF CARDIAC DISTRESS OR DISCOMFORT. IV ACCESS LAC #20 RUNNING NS @75 ML/HR. INTACT AND PATENT. SKIN INTACT. SAFETY MEASURES IN PLACE: BED LOCKED AND IN LOWEST POSITION, CALL LIGHT WITHIN REACH, HOB ELEVATED, SIDE RAILS UPx2. WILL CONTINUE TO MONITOR AND ASSIST.
[2022-09-05 20:00] VITALS: BP 134/77
[2022-09-05] MEDS: HYDROCODONE/APAP 5/325MG TABLET PO PRN (20:14)
[2022-09-05] MEDS: ATORVASTATIN 10 MG TABLET PO SCH (21:52)
--- NOTE | 2022-09-05 23:26 | NUR ---
RN NOTE INFORMED PATIENT THAT THE MD HAS ORDERED MORPHINE 4 MG IVP PRN FOR HER SEVERE PAIN. PER PATIENT, SHE NO LONGER WANTS TO TAKE THE MORPHINE BECAUSE "MORPHINE IS A WHOLE DIFFERENT BALL GAME" AND PATIENT STATES THAT SHE IS SCARED TO TAKE THE MORPHINE BECAUSE IT WILL GO "STRAIGHT TO HER HEART". EDUCATED PATIENT REGARDING THE MEDICATION, PATIENT STILL REFUSING IT EVEN THOUGH SHE STATES SHE HAS SEVERE HEADACHE. ASKED PATIENT IF SHE WOULD PREFER A DIFFERENT MEDICATION, BUT PATIENT STATES SHE'S "OKAY" WITH THE NORCO 5-325. I ASKED THE PATIENT IF SHE WANTED A STRONGER NORCO PILL SINCE SHE IS COMFORTABLE WITH TAKING NORCO, SHE SAID NO. PATIENT STATES SHE DOES NOT WANT TO TRY ANY OTHER MEDICATION.
[2022-09-06] MEDS: ZOSYN IVPB 2.25 G in IV D5W 50ml IV SCH ×2 (00:47→06:08)
--- NOTE | 2022-09-06 01:44 | NUR ---
RN NOTE PATIENT SLEEPING COMFORTABLY. CAREGIVER AT BEDSIDE.
[2022-09-06 05:00] VITALS: BP 140/71
[2022-09-06] MEDS ORDERED: MORPHINE SULFATE INJ 4 MG/ML DISP.SYRIN IV PRN (05:00)
[2022-09-06] MEDS: LEVOTHYROXINE SODIUM 112 MCG TABLET PO SCH (06:08)
[2022-09-06 06:42] LABS: BILIRUBIN,URINE NEGATIVE (NEGATIVE); COLOR,URINE YELLOW (YELLOW); LEUKOCYTE ESTERASE ,URINE 1+ (NEGATIVE); NITRITE, URINE NEGATIVE (NEGATIVE); PH,URINE 5.5 (5.0-8.0); PROTEIN,URINE NEGATIVE (NEGATIVE); UGLUCOSE NEGATIVE (NEGATIVE); UROBILINOGEN,URINE 0.2 EU/dL (0.2)
[2022-09-06 06:47] LABS: CREATININE 1.1 mg/dL (0.6-1.3); MAGNESIUM 1.8 mg/dL (1.8-2.4); PHOSPHORUS 4.3 mg/dL (2.5-4.9); POTASSIUM 4.2 mmol/L (3.5-5.1)
[2022-09-06] MEDS: BLOOD SUGAR DIAGNOSTIC 1 EACH STRIP IN SCH ×4 (06:49→22:36)
[2022-09-06] MEDS: INSULIN REGULAR, HUMAN 100 UNIT/ML 3 ML VIAL SQ PRN ×4 (06:49→22:37)
[2022-09-06 06:54] LABS: BASOPHILS % (AUTO) 0.7 % (0.0-2.0); HEMATOCRIT 27 % (33-45); HEMOGLOBIN 8.4 g/dL (11.5-14.8); LYMPHOCYTES # (AUTO) 2.6 K/uL (0.8-4.8); LYMPHOCYTES % (AUTO) 44.9 % (20.0-44.0); MEAN CORPUSCULAR HGB CONC 31 g/dl (31.0-36.0); MEAN CORPUSCULAR VOLUME 74 fL (82-100); MONOCYTES # (AUTO) 0.8 K/uL (0.1-1.30); NEUTROPHILS # (AUTO) 2.3 K/uL (1.8-8.9); NEUTROPHILS % (AUTO) 38.4 % (43.0-81.0); PLATELET COUNT (AUTO) 177 K/uL (150-450); RED BLOOD CELL COUNT(AUTO) 3.68 MIL/uL (4.0-5.2); WHITE BLOOD COUNT (AUTO) 5.9 K/uL (4.3-11.0)
--- NOTE | 2022-09-06 07:10 | NUR ---
PROCESS DEVELOPMENT CHEMIST CLOSING NOTES PT SLEEPING IN BED AT THIS TIME. A/Ox3-4 AND ABLE TO MAKE NEEDS KNOWN. CAREGIVER AT BEDSIDE. STABLE ON RA WITH NO S/S OF RESPIRATORY DISTRESS, ON TELE MONITORING SHOWING SR, HR 78. NO C/O OF CARDIAC DISTRESS OR DISCOMFORT. IV ACCESS LAC #20 RUNNING NS @75 ML/HR. INTACT AND PATENT. SP CATHETER INTACT. SKIN INTACT. ALL CARE PROVIDED AND ADMINISTERED MEDICATIONS TOLERATED WELL. SAFETY MEASURES MAINTAINED: BED LOCKED AND IN LOWEST POSITION, CALL LIGHT WITHIN REACH, HOB ELEVATED, SIDE RAILS UPx2. WILL ENDORSE CASTILLO TO DEVELOPMENTAL SPECIALIST NURSE.
--- NOTE | 2022-09-06 07:20 | NUR ---
BRANCH RETAIL EXECUTIVE OPENING NOTES RECEIVED PT A/Ox3-4 ABLE TO MAKE NEEDS KNOWN. CAREGIVER AT BEDSIDE. ON RA WITH NO S/S OF RESPIRATORY DISTRESS, ON TELE MONITORING SHOWING SR, HR 80. NO C/O OF CARDIAC DISTRESS OR DISCOMFORT. IV ACCESS LAC #20 RUNNING NS @75 ML/HR. INTACT AND PATENT. SKIN INTACT. SAFETY MEASURES IN PLACE: BED LOCKED AND IN LOWEST POSITION, CALL LIGHT WITHIN REACH, HOB ELEVATED, SIDE RAILS UPx2. WILL CONTINUE TO MONITOR.
[2022-09-06 08:00] VITALS: BP 130/76
[2022-09-06 08:35] LABS: BACTERIA,URINE Few /HPF (None Seen); RBC,URINE 0-2 /HPF (0-2); SQUAMOUS EPITHELIAL CELL,UR Few /HPF (None Seen); YEAST,URINE Moderate /HPF (None Seen)
[2022-09-06] MEDS: SERTRALINE HCL 50 MG TABLET PO SCH ×2 (09:25→17:09)
[2022-09-06] MEDS: GABAPENTIN 300 MG CAPSULE PO SCH ×3 (09:25→17:09)
[2022-09-06] MEDS: BUPROPION XL 150 MG TAB.ER.24 PO SCH (09:25)
[2022-09-06] MEDS: PANTOPRAZOLE 40 MG VIAL IV SCH (09:28)
[2022-09-06] MEDS: HEPARIN SODIUM, PORCINE 5000 UNITS/1 ML VIAL SQ SCH ×2 (09:33→21:55)
[2022-09-06] MEDS ORDERED: IOHEXOL-300 100 ML VIAL IV ONE (10:29)
[2022-09-06] MEDS ORDERED: IV NS 0.9% 250 ML IV ONE (10:30)
[2022-09-06] MEDS: CEFTRIAXONE 1 G in IV D5W 50 ML IV SCH (12:20)
--- NOTE | 2022-09-06 15:54 | NUR ---
DISCHARGED NOTE PATIENT DISCHARGED TO SNF IN STABLE CONDITION. VITALS TAKEN,RECORDED AND STABLE. REPORT WERE GIVEN TO [facility] OF [facility]. IV LINED REMOVED ASEPTICALLY. ALL BELONGINGS GIVEN TO PATIENT. LEFT UNIT AROUND 1520h. Addendum: 09/06/22 at 1738 by SHANNAN LANG RN WRONG ENTRY
[2022-09-06 16:00] VITALS: BP 119/78
--- NOTE | 2022-09-06 17:42 | NUR ---
MEDICAL TRANSCRIBER CLOSING NOTES PATIENT AWAKE IN BED, A/Ox3-4 ABLE TO MAKE NEEDS KNOWN. CAREGIVER AT BEDSIDE. STABLE ON ROOM AIR NO S/S OF RESPIRATORY DISTRESS, ON TELE MONITORING SHOWING SR DEGREE HR 75. NO C/O OF CARDIAC DISTRESS OR DISCOMFORT. IV ACCESS LAC #20 RUNNING NS @75 ML/HR. INTACT AND PATENT.ALL NEEDS MET. SKIN INTACT. SAFETY MEASURES MAINTAINED: BED LOCKED AND IN LOWEST POSITION, CALL LIGHT WITHIN REACH, HOB ELEVATED, SIDE RAILS UPx2. WILL ENDORSE TO NEXT SHIFT.
[2022-09-06] MEDS: IV NS 0.9% 1,000 ML IV PRN (18:31)
[2022-09-06 20:00] VITALS: BP 103/61
[2022-09-06] MEDS: HYDROCODONE/APAP 5/325MG TABLET PO PRN (20:45)
[2022-09-06] MEDS: ATORVASTATIN 10 MG TABLET PO SCH (21:53)
[2022-09-07] VITALS: BP 144/80
[2022-09-07 04:00] VITALS: BP 147/80
[2022-09-07 06:32] VITALS: BP_SYST 124; BP_SYST 147; BP_SYST 165; BP_DIAS 71; BP_DIAS 86; BP_DIAS 94
--- NOTE | 2022-09-07 06:34 | NUR ---
ORTHOSTATIC BP DONE SUPINE 165/94 SITTING 147/86 STANDING 124/71
[2022-09-07] MEDS: LEVOTHYROXINE SODIUM 112 MCG TABLET PO SCH (06:47)
[2022-09-07 07:00] VITALS: BP 148/89
[2022-09-07] MEDS: BLOOD SUGAR DIAGNOSTIC 1 EACH STRIP IN SCH ×2 (07:06→12:27)
[2022-09-07] MEDS: INSULIN REGULAR, HUMAN 100 UNIT/ML 3 ML VIAL SQ PRN ×2 (07:06→12:35)
--- NOTE | 2022-09-07 07:10 | NUR ---
ASPHALT DAUBER CLOSING NOTES PT IN BED, SLEEPING AT THIS TIME. A/Ox3-4, ABLE TO MAKE NEEDS KNOWN. CAREGIVER AT BEDSIDE. STABLE ON RA WITH NO S/S OF RESPIRATORY DISTRESS. ON TELE MONITORING SHOWING SR WITH 1ST DEG AV BLOCK AND BBB, HR 65. NO C/O OF CARDIAC DISTRESS OR DISCOMFORT. PT TESTED AND POSITIVE FOR ORTHOSTATIC HYPOTENSION. IV ACCESS LAC #20 RUNNING NS @75 ML/HR. INTACT AND PATENT. ALL CARE PROVIDED AND ADMINISTERED MEDICATIONS TOLERATED WELL. SAFETY MEASURES MAINTAINED: BED LOCKED AND IN LOWEST POSITION, CALL LIGHT WITHIN REACH, HOB ELEVATED, SIDE RAILS UPx3. WILL CONTINUE TO MONITOR AND ASSIST.
[2022-09-07 07:23] LABS: BASOPHILS % (AUTO) 0.6 % (0.0-2.0); EOSINOPHILS % (AUTO) 2.2 % (0.0-6.0); HEMATOCRIT 29 % (33-45); HEMOGLOBIN 8.7 g/dL (11.5-14.8); LYMPHOCYTES # (AUTO) 2.6 K/uL (0.8-4.8); LYMPHOCYTES % (AUTO) 35.4 % (20.0-44.0); MEAN CORPUSCULAR HGB CONC 31 g/dl (31.0-36.0); MEAN CORPUSCULAR VOLUME 74 fL (82-100); NEUTROPHILS # (AUTO) 3.6 K/uL (1.8-8.9); NEUTROPHILS % (AUTO) 48.8 % (43.0-81.0); PLATELET COUNT (AUTO) 199 K/uL (150-450); RED BLOOD CELL COUNT(AUTO) 3.83 MIL/uL (4.0-5.2); WHITE BLOOD COUNT (AUTO) 7.4 K/uL (4.3-11.0)
[2022-09-07] MEDS ORDERED: PANTOPRAZOLE 40 MG TABLET.DR PO SCH (07:30)
--- NOTE | 2022-09-07 07:30 | NUR ---
ELECTRICAL ENGINEERING PROFESSOR OPENING NOTES RECEIVED PT AWAKE IN BED, A/Ox3-4, ABLE TO MAKE NEEDS KNOWN. CAREGIVER AT BEDSIDE. ON RA WITH NO S/S OF RESPIRATORY DISTRESS. ON TELE MONITORING SHOWING SR, HR 75. NO C/O OF CARDIAC DISTRESS OR DISCOMFORT. IV ACCESS LAC #20 RUNNING NS @75 ML/HR. INTACT AND PATENT. SAFETY MEASURES IMPLEMENTED: BED LOCKED AND IN LOWEST POSITION, CALL LIGHT WITHIN REACH, HOB ELEVATED, SIDE RAILS UPx3. WILL CONTINUE TO MONITOR AND ASSIST.
[2022-09-07 08:07] LABS: ALANINE AMINOTRANSFERASE 18 U/L (12-78); ALBUMIN 2.8 g/dL (3.4-5.0); ALKALINE PHOSPHATASE 110 U/L (46-116); ASPARTATE AMINOTRANSFERASE 12 U/L (15-37); BILIRUBIN,TOTAL 0.1 mg/dL (0.2-1.0); CALCIUM, SERUM 8.5 mg/dL (8.5-10.1); CARBON DIOXIDE 29 mmol/L (21-32); CHLORIDE 107 mmol/L (98-107); CREATININE 0.9 mg/dL (0.6-1.3); GLUCOSE 132 mg/dL (74-106); MAGNESIUM 1.7 mg/dL (1.8-2.4); POTASSIUM 3.9 mmol/L (3.5-5.1); SODIUM SERUM 142 mmol/L (136-145); TOTAL PROTEIN, SERUM 6.1 g/dL (6.4-8.2); UREA NITROGEN, BLOOD 12 mg/dL (7-18)
[2022-09-07] MEDS: SERTRALINE HCL 50 MG TABLET PO SCH (09:17)
[2022-09-07] MEDS: GABAPENTIN 300 MG CAPSULE PO SCH ×2 (09:17→12:13)
[2022-09-07] MEDS: BUPROPION XL 150 MG TAB.ER.24 PO SCH (09:17)
[2022-09-07] MEDS: HEPARIN SODIUM, PORCINE 5000 UNITS/1 ML VIAL SQ SCH (09:23)
[2022-09-07 12:00] VITALS: BP 146/104
[2022-09-07] MEDS: Magnesium 1GM/D5W 100ML PREMIX 100 ML IV SCH ×2 (12:09→12:18)
[2022-09-07] MEDS: CEFTRIAXONE 1 G in IV D5W 50 ML IV SCH (12:11)
[2022-09-07] MEDS: ONDANSETRON HCL/PF 4 MG/2 ML VIAL IVP PRN (12:13)
[2022-09-07] MEDS: ACETAMINOPHEN 325 MG TABLET PO PRN (13:30)
--- NOTE | 2022-09-07 17:34 | NUR ---
DISCHARGED NOTE PATIENT DISCHARGED TO HOME ACCOMPANIED BY CAREGIVER.LEFT UNIT AT 1700H. VITALS WERE TAKEN, STABLE AND RECORDED. NO C/O PAIN OR DISCOMFORT. PATIENT STATES " I WANTED TO GO HOME IMMEDIATELY. IV LINE REMOVED. DISCHARGED.
== END 2022-09-07 17:10 | disposition left against medical advice (07) | DRG 871 ==
LOC: ER 01:00 → TELE 03:50
PROVIDERS: ADMIT Internal Medicine; ATTEND Nurse Practitioner Acute Care
DX: A41.9 Sepsis, unspecified organism (principal); G93.41 Metabolic encephalopathy; N17.0 Acute kidney failure with tubular necrosis; N39.0 Urinary tract infection, site not specified; E87.20 Acidosis, unspecified; R55 Syncope and collapse; R65.20 Severe sepsis without septic shock; E86.0 Dehydration; I10 Essential (primary) hypertension; E78.5 Hyperlipidemia, unspecified; K52.9 Noninfective gastroenteritis and colitis, unspecified; E11.42 Type 2 diabetes mellitus with diabetic polyneuropathy; E83.42 Hypomagnesemia; K52.89 Other specified noninfective gastroenteritis and colitis; Z20.822 Contact with and (suspected) exposure to COVID-19
CPT/HCPCS: 36415; 71045-TC; 74178; 80048-TC; 80053-TC; 80061-TC; 80076-TC; 81001; 82607-TC; 82962-TC; 83540-TC; 83605-TC; 83690-TC; 83735-TC; 83880; 84100-TC; 84300-TC; 84484-TC; 85025-TC; 87040-TC; 87081-TC; 87086-TC; 93307-TC; 97112-TC; 97116-TC; 97530-TC; A6403; C9113; C9803; G0378; J0696; J1644; J1815; J2405; J2543; J3475; J7050; J7060; Q9967